=== PATIENT | male | born 2000 | race African-American/Black ===

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

== ENCOUNTER 2020-02-28 13:21 | Outpatient (CLI) | payer BC | END 2020-02-28 13:22 | disposition home or self-care (01) | LOC: CTENTCT 13:21 | PROVIDERS: ATTEND Otolaryngology Plastic Surgery within the Head & Neck | DX: J32.9 Chronic sinusitis, unspecified (principal) | CPT/HCPCS: 70486 ==

== ENCOUNTER 2023-03-16 14:21 | Outpatient (CLI) | payer BC | END 2023-03-16 14:22 | disposition home or self-care (01) | LOC: BICMAMMO 14:21 | PROVIDERS: ATTEND Family Medicine | DX: N64.4 Mastodynia (principal); N63.20 Unspecified lump in the left breast, unspecified quadrant | CPT/HCPCS: 77066; G0279 ==